=== PATIENT | male | born 1995 | race Caucasian/White ===

== ENCOUNTER 2024-04-06 15:53 | Emergency (ER) | payer BC, SELFPAY ==
[2024-04-06 16:05] VITALS: BP 111/77; PULSE 72; RESP 16; TEMP 36.7; O2SAT 99
[2024-04-06 16:21] VITALS: BP 111/77; PULSE 72; RESP 16; TEMP 36.7; O2SAT 99
--- NOTE | 2024-04-06 17:13 | ED.EAR ---
HPI - Ear Problem General Chief complaint: Ear Stated complaint: Ear infection Source: patient Mode of arrival: ambulatory Limitations: no limitations History of Present Illness HPI Narrative: Patient presents for evaluation right-sided ear pain. Symptom onset 2 days ago. He indicates he was whitewater rafting last week. He got water in his ear. Denies any drainage from the ear. Denies any hearing loss. No fever, chills, nausea, vomiting, sore throat or cough. No recent sick contacts. He is not taking anything to assist with the symptoms. He rates his pain 4/10 in severity. Related Data Allergies Allergy/AdvReac Type Severity Reaction Status Date / Time No Known Allergies Allergy Verified 04/06/24 15:59 Review of Systems Review of Systems: CONSTITUTIONAL: Denies fever, chills, or sweats. EYES: Denies visual changes, redness, or discharge. ENT: Reports right-sided ear pain. Denies sore throat, loss of hearing, or drainage from ear. CARDIOVASCULAR: Denies chest pain, palpitations, or edema. RESPIRATORY: Denies cough or dyspnea. GASTROINTESTINAL: Denies abdominal pain, nausea, vomiting, or diarrhea. GENITOURINARY: Denies dysuria or hematuria. SKIN: Denies rash or itching. MUSCULOSKELETAL: Denies back pain, joint pain, or myalgia. NEUROLOGIC: Denies headache, numbness, dizziness, or weakness. PSYCHIATRIC: Denies anxiety or depression. [facility] Past Medical History Medical History No pertinent past medical history Surgical History Surgical History No pertinent past surgical history Family History Family History Mother Family history non-contributory Social History Social History Living arrangements: alone Gender identity (if verbalized by the patient): Male Spiritual care concerns: No Exam Narrative: GENERAL: Well-appearing, well-nourished, and in no acute distress. HEAD: Normocephalic, atraumatic. EYES: PERRLA and EOMI. ENT: Nares clear, no rhinorrhea or epistaxis. Mucous membranes moist. Oropharynx without tonsillar hypertrophy exudate or other lesions. There is mild bulging both tympanic membranes, right greater than left with tympanic membrane erythema bilaterally NECK: Supple. No adenopathy or masses. No carotid bruits or JVD CHEST: Clear to auscultation. No respiratory distress. No wheezes rales or rhonchi HEART: Regular rate and rhythm. No murmur heard. Normal peripheral pulses. ABDOMEN: Soft, nontender, nondistended, normal active bowel sounds. EXTREMITIES: Normal range of motion. No edema. SKIN: Warm, dry, no rash. NEURO: No focal deficits. Alert and oriented x3. PSYCH: Normal mood and affect. Course Course Emergency Course: This is a 28-year-old male who presented for evaluation of right-sided ear pain. He has evidence of an early otitis media. Will treat with Augmentin. Increase hydration. OTC agents for symptom management. Follow up with primary provider. Go to the ER for worsening symptoms. Pt in agreement with plan of care. Level of Care: Express Care Visit Vital Signs Vital signs: Vital Signs Temperature 36.7 C 04/06/24 16:05 Pulse Rate 72 04/06/24 16:05 Respiratory Rate 16 04/06/24 16:05 Blood Pressure 111/77 04/06/24 16:05 Pulse Oximetry 99 04/06/24 16:05 Oxygen Delivery Room Air 04/06/24 16:05 Temperature 36.7 C 04/06/24 16:21 Pulse Rate 72 04/06/24 16:21 Respiratory Rate 16 04/06/24 16:21 Blood Pressure 111/77 04/06/24 16:21 Pulse Oximetry 99 04/06/24 16:21 Oxygen Delivery Room Air 04/06/24 16:21 Medical Decision Making Vital Signs Vital Signs: Vital Signs Temperature 36.7 C 04/06/24 16:05 Pulse Rate 72 04/06/24 16:05 Respiratory Rate 16 04/06/24 1
== END 2024-04-06 17:14 | disposition home or self-care (01) ==
PROVIDERS: Emergency Provider Nurse Practitioner
DX: H66.91 Otitis media, unspecified, right ear (principal)
CPT/HCPCS: 99213; G0463